=== PATIENT | female | born 1950 | race Caucasian/White ===

== ENCOUNTER → 2021-04-04 10:11 | Outpatient (CLI) | payer MEDICARE, SELFPAY ==
--- NOTE | ~2021-04-04 | US_ITS ---
EXAMINATION: US abdomen complete EXAM DATE: 04/04/2021 10:38 INDICATION: K76.0 - Fatty (change of) liver, not elsewhere classified. TECHNIQUE: Multiple grayscale and Doppler images of the complete abdomen were obtained (by a technolo gist who performed the scan) and subsequently reviewed. Comparison is made to prior examination from 12/11/2014. FINDINGS: The abdominal aorta is normal in caliber. Visualized portion IVC is patent. The pancreatic head a nd body are normal in appearance. The pancreatic tail is not visualized. There is echogenic liver parenchyma, hepatic steatosis. There are no focal liver lesions identified. There is no evidence of intrahepatic biliary duct dilation. Portal venous flow was seen in the he patopedal, normal direction and has normal Doppler waveform. Common bile duct measures 5 mm, which is normal. The gallbladder wall is normal in thickness, with ex pected amount of distention. No sonographic evidence of pericholecystic fluid. There is no cholelit hiases. Technologist performing exam reports patient did not demonstrate sonographic Morgan's sign. Please note that this sign is less reliable in patients who have received pain medication. Right kidney: There is normal contour and echogenicity. It measures 10.4 x 5.1 x 5.1 centimeters. T here is anechoic lesion consistent with cysts measuring up to 3.4 cm. There is no hydronephrosis. Left kidney: There is normal contour and echogenicity. It measures 11.0 x 5.3 x 4.9 centimeters. Th ere is anechoic lesion with increased through transmission measuring up to 3.7 cm, consistent with cy sts. There is no hydronephrosis. Spleen measures 13.9 cm, upper limits of normal with multiple granulomata. IMPRESSION: 1. Hepatic steatosis. Reviewed, dictated and finalized at location B. IMPRESSION: 1. Hepatic steatosis.
== END ==
PROVIDERS: PCP Physician Assistant Medical; Visit Provider Physician Assistant Medical
DX: K76.0 Fatty (change of) liver, not elsewhere classified (principal)
CPT/HCPCS: 76700

== ENCOUNTER → 2021-05-29 09:15 | Outpatient (CLI) | payer MEDICARE, SELFPAY ==
--- NOTE | ~2021-05-29 | XR_ITS ---
EXAMINATION: XR knee LT 3V EXAM DATE: 05/29/2021 09:38 INDICATION: M25.562 - Pain in left knee . Anterior knee pain x 6 weeks after moving furniture, pain s ometimes radiates up to upper leg and down to lower leg, pt fell onto L knee 5 yrs ago. TECHNIQUE: Three projections of the left knee. There is no prior study for comparison. FINDINGS: No evidence osteochondral defect or joint body in the left knee joint. Mild to moderate narrowing of the left knee medial tibiofemoral compartment. Mild left patellar lateral tilt and sublu xation. Mild bony productive changes. There are no acute fractures or dislocations identified. There is no subcutaneous gas. The soft tissue is unremarkable. There are no radiopaque foreign bodies. No sizable joint effusion. IMPRESSION: Mild to moderate left knee osteoarthritis. Reviewed, dictated and finalized at location A.
== END ==
PROVIDERS: PCP Family Medicine; Visit Provider Nurse Practitioner Family
DX: M17.12 Unilateral primary osteoarthritis, left knee (principal)
CPT/HCPCS: 73562

== ENCOUNTER 2021-09-12 08:53 | Emergency (ER) | payer MEDICARE, SELFPAY ==
--- NOTE | ~2021-09-12 | XR_ITS ---
EXAMINATION: XR ribs LT 2V w CXR 2V DATE: 09/12/2021 10:16 INDICATION: Left rib pain. Fall. TECHNIQUE: Frontal and lateral views of the chest and 2 views on 3 radiographs of the left ribs were obtained. COMPARISON: Chest 2 views 03/16/2018 FINDINGS: CHEST TWO VIEWS: A calcified right lung nodule is consistent with old granulomatous disease. No pleur al effusion or pneumothorax. The heart size is normal. RIGHT RIBS: There is no rib fracture. IMPRESSION: 1. No rib fracture. Reviewed, dictated and finalized at location A. ET LIGHT WIRER IMPRESSION: 1. No rib fracture.
--- NOTE | ~2021-09-12 | XR_ITS ---
EXAMINATION: XR knee LT 2V DATE: 09/12/2021 10:14 INDICATION: Left knee pain. TECHNIQUE: 3 views of left knee were obtained. COMPARISON: Left knee radiographs 05/29/2021 FINDINGS: Bone alignment is normal. No fracture. There is moderate osteoarthritis of medial compartme nt and mild osteoarthritis of lateral and patellofemoral compartments. No knee joint effusion. IMPRESSION: 1. Moderate left knee osteoarthritis. Reviewed, dictated and finalized at location A. ELLER MECHANIC
[2021-09-12 09:05] VITALS: BP 191/83; PULSE 70; RESP 16; TEMP 36.3; O2SAT 97
--- NOTE | 2021-09-12 09:09 | ED.GENADULT ---
HPI - General Adult General Chief complaint: Wound/Laceration Stated complaint: laceration on R arm Source: patient Mode of arrival: ambulatory Limitations: no limitations History of Present Illness HPI narrative: Mirian is a 70F with a PMH of obesity, fatty liver, pulmonary HTN, bradycardia, PABLO, HTN, DMII and COPD that presented to the ED with with a skin tear. She was getting a coat from under her bed when she fell foreword. She scraped skin off the right forearm and hit her left knee and ribs and now has pain. She did not hit her head or lose consciousness. Related Data Home Medications Medication Instructions Recorded Confirmed albuterol sulfate 90 mcg/actuation 2 puff INHALATION Q4-6H PRN gm 08/12/19 09/03/21 aerosol inhaler Allergies Allergy/AdvReac Type Severity Reaction Status Date / Time dapagliflozin [From [facility]] Allergy Mild yeast Verified 09/12/21 09:13 infection metformin Allergy Mild pain and Verified 09/12/21 09:13 constipation sulfanilamide Allergy Unknown Unknown Verified 09/12/21 09:13 sulfur dioxide Allergy Unknown Unknown Verified 09/12/21 09:13 Review of Systems Constitutional: Constitutional: Reports no additional constitutional complaints Eyes: Eyes: Reports no additional eye complaints ENT: Reports system reviewed and no additional complaints, except as documented Cardiovascular: Cardiovascular: Reports no additional cardiovascular complaints Respiratory: Respiratory: Reports no additional respiratory complaints Gastrointestinal: Gastrointestinal: Reports no additional gastrointestinal complaints Genitourinary: Genitourinary: Reports no additional female genitourinary complaints Musculoskeletal: Musculoskeletal: Reports no additional musculoskeletal complaints Integumentary/Breasts: Skin/Breast: Reports as per HPI Neurologic: Reports system reviewed and no additional complaints, except as documented Psychiatric: Psychiatric: Reports no additional psychiatric complaints Endocrine: Endocrine: Reports no additional endocrine complaints Hematologic/Lymphatic: Hematologic/Lymphatic: Reports no additional hematologic/lymphatic complaints Allergic/Immunologic: Allergic/Immunologic: Reports no additional allergic/immunologic complaints [facility] Past Medical History Medical History Anxiety BMI 45.0-49.9, adult Chronic obstructive pulmonary disease Diabetes mellitus Diastolic dysfunction Essential hypertension Fatty liver Intermittent asthma without complication Mixed hyperlipidemia Morbid obesity Morbid obesity with BMI of 50.0-59.9, adult PABLO (obstructive sleep apnea) Pulmonary hypertension Sinus arrhythmia Surgical History Surgical History H/O: hysterectomy Family History Family History Father Hypertension Cerebrovascular accident Family history of diabetes mellitus in first degree relative Family history of coronary artery disease Acute myocardial infarction, Onset Age: 66 Mother Hypertension Family history of diabetes mellitus in first degree relative Family history of coronary artery disease Acute myocardial infarction Grandparent Cerebrovascular accident Family history of malignant neoplasm Sibling Heart disease Sibling No problems noted. Social History Social History Second hand tobacco smoke exposure: No Alcohol intake: never Substance use: never Substance use type: does not use Gender identity (if verbalized by the patient): Female Sexual Orientation (if Verbalized by the Patient): Straight or Heterosexual Spiritual care concerns: No Agree to blood products: Yes Exam Const: General: no acute distress and alert Orientation/consciousness: patient orient
[2021-09-12] MEDS: TETANUS,DIPHTHERIA,AC PERTUSSIS ADULT 0.5 ML (ADACEL) IM (10:43)
[2021-09-12 10:47] VITALS: BP 166/92; PULSE 58; RESP 16; TEMP 36.2; O2SAT 97
== END 2021-09-12 10:49 | disposition home or self-care (01) ==
PROVIDERS: Emergency Provider Family Medicine; PCP Family Medicine
DX: S51.811A Laceration without foreign body of right forearm, initial encounter (principal); W19.XXXA Unspecified fall, initial encounter
CPT/HCPCS: 71046; 71100; 73560; 90471; 90715; 99282

== ENCOUNTER 2023-11-10 10:41 | Outpatient (CLI) | payer MEDICARE, SELFPAY ==
--- NOTE | ~2023-11-10 | XR_ITS ---
Clinical Indication: Bronchitis PA and lateral views of the chest: Comparison: 09/12/2021 Findings: Stable calcified right upper lobe granuloma noted. The lungs are otherwise clear, without e vidence of focal consolidation or pleural effusion. Cardiomediastinal silhouette is within normal li mits. Bones and soft tissues are unremarkable. Impression: No significant abnormality. Reviewed, dictated and finalized at location . ROOM SUPERVISOR Impression: No significant abnormality.
== END 2023-11-10 10:42 | disposition home or self-care (01) ==
PROVIDERS: PCP Family Medicine; Visit Provider Physician Assistant Medical
DX: J20.9 Acute bronchitis, unspecified (principal)
CPT/HCPCS: 71046

== ENCOUNTER 2025-02-28 13:44 | Outpatient (CLI) | payer MEDICARE, SELFPAY ==
--- NOTE | ~2025-02-28 | XR_ITS ---
EXAMINATION: XR chest 2V 02/28/2025 14:05 INDICATION: Wheezing PROCEDURE: 2 view chest COMPARISON: 11/10/2023 FINDINGS: The lungs are clear. Calcified granuloma right upper lobe. The cardiomediastinal silhouette is within normal limits. There are no pleural effusions. There is no pneumothorax suspected. IMPRESSION: 1: NO ACUTE CARDIOPULMONARY DISEASE. Reviewed, dictated and finalized at location B.
--- NOTE | 2025-02-28 14:03 | ECG_ITS ---
Test Date: 2025-02-28 14:20:27 Measurements Intervals [place] Rate: 59 P: 33 NE: 157 QRS: -37 QRSD: 106 T: 16 QT: 404 QTc: 401 Interpretive Statements SINUS BRADYCARDIA LEFT AXIS DEVIATION LOW QRS VOLTAGE IN PRECORDIAL LEADS INCOMPLETE RIGHT BUNDLE BRANCH BLOCK INFERIOR INFARCT, AGE INDETERMINATE CONSIDER ANTERIOR INFARCT, AGE INDETERMINATE BASELINE ARTIFACT- I, II, AVR, V1-V2, V4-V6 ABNORMAL ECG No previous ECG available for comparison Electronically Signed On 02-28-2025 14:45:04 CDT by Constantino Warren D.O.
== END 2025-02-28 13:45 | disposition home or self-care (01) ==
PROVIDERS: PCP Family Medicine; Visit Provider Physician Assistant Medical
DX: R06.2 Wheezing (principal); R07.9 Chest pain, unspecified; I49.8 Other specified cardiac arrhythmias; R94.31 Abnormal electrocardiogram [ECG] [EKG]
CPT/HCPCS: 71046; 93005

== ENCOUNTER 2025-03-23 09:03 | Outpatient (CLI) | payer MEDICARE, SELFPAY ==
--- NOTE | ~2025-03-23 | NM_ITS ---
EXAMINATION: NM jerry stress w perfusion DATE: 03/23/2025 11:48 INDICATION: Chest pain TECHNIQUE: Rest images were obtained following intravenous administration of 10.7 mCi Tc99m tetrofosm in (Myoview). The patient was infused intravenously with Lexiscan (Regadenoson). Then, 33.6 mCi Tc99m tetrofosmin (Myoview) was administered intravenously, and stress images were obtained. Data was bimal nstructed into short axis and horizontal and vertical long axis SPECT images. Gated SPECT images were also obtained. COMPARISON: None. FINDINGS: Region of mild decreased activity at the mid inferior wall on the gated post stress imaging which appears slightly larger and more severe than on both the rest and on gated post stress imaging where it extends into the adjacent apical inferior, basilar inferior and mid inferoseptal segments. There is normal left ventricular chamber size, wall motion and ejection fraction. Left ventricular ejection fraction measures >70%. IMPRESSION: 1. Possible small mild infarct versus diaphragmatic attenuation artifact at the mid inferior segment. 2. Left ventricular ejection fraction measuring >70%. Reviewed, dictated and finalized at location B.
--- NOTE | 2025-03-23 09:46 | EST_ITS ---
Patient Info Name: Mirian Goldstein Age: 74 years : 1950 Gender: Female Ht: 62 in Wt: 200 lbs BSA: 2.04 m2 HR: 58 bpm BP: 142 / 66 mmHg Exam Date: 03/23/2025 9:46 AM Patient Status: O Admit Date: 03/23/2025 Exam Type: CA stress jerry w NM A regadenoson stress test was performed. Staff Referring Physician: Cathie Cedillo Attending Provider: Cathie Cedillo Exercise Technologist: Ailyn oCmer Exercise Physician: Constantino Warren DO Summary 1. 1. Negative lexiscan stress test for ischemic ST changes by ECG criteria. 2. 2. Baseline hypertension. 3. 3. Nuclear scan to follow and will be reported separately. Please correlate with it. 4. 4. Patient informed of the above results. Protocol: Lexiscan Stress ECG Details Stage: REST Duration (min): 0 min : 22 sec HR (bpm): 54 SBP (mmHg): --- DBP (mmHg): --- Stage: REST Duration (min): 0 min : 49 sec HR (bpm): 53 SBP (mmHg): --- DBP (mmHg): --- Stage: REST Duration (min): 7 min : 12 sec HR (bpm): 60 SBP (mmHg): 142 DBP (mmHg): 66 Stage: STAGE 1 Duration (min): 1 min : 0 sec HR (bpm): 66 SBP (mmHg): 142 DBP (mmHg): 66 Stage: RECOVERY Duration (min): 1 min : 0 sec HR (bpm): 67 SBP (mmHg): 187 DBP (mmHg): 73 Stage: RECOVERY Duration (min): 2 min : 0 sec HR (bpm): 64 SBP (mmHg): 187 DBP (mmHg): 73 Stage: RECOVERY Duration (min): 3 min : 0 sec HR (bpm): 63 SBP (mmHg): 187 DBP (mmHg): 73 Stage: RECOVERY Duration (min): 3 min : 29 sec HR (bpm): 62 SBP (mmHg): 177 DBP (mmHg): 81 Rest HR: 60 bpm Peak HR: 70 bpm Rest Sys BP: 142 mmHg Peak Sys BP: 187 mmHg Max Pred HR: 148 bpm % Max Pred HR: 47 % Target HR: 126 bpm Max RPP: 13,090 bpm*mmHg Termination Reason: Completed protocol Cardiac Symptoms: None Total Time: 1 min : 0 sec Rest Jimenez BP: 66 mmHg Peak Jimenez BP: 73 mmHg Total Dose: 0.4 mg Resting ECG Sinus rhythm. Stress ECG No ST changes. Arrhythmias None. Report Signatures
== END 2025-03-23 09:04 | disposition home or self-care (01) ==
PROVIDERS: PCP Family Medicine; Visit Provider Physician Assistant Medical
DX: R07.9 Chest pain, unspecified (principal); I25.2 Old myocardial infarction; I10 Essential (primary) hypertension
CPT/HCPCS: 78452; 93017; A9502; J2785